=== PATIENT | female | born 1980 | race American Indian/Alaskan Native ===

== ENCOUNTER 2019-08-10 12:31 | Emergency (ER) | payer BC ==
[2019-08-10 13:06] VITALS: BP 122/69; PULSE 80
--- NOTE | 2019-08-10 13:08 | EDM.PDOC ---
ED HPI GENERAL MEDICAL PROBLEM - General Chief Complaint: Respiratory Problem Stated Complaint: COUGH Time Seen by Provider: 08/10/19 13:08 Source of Information: Reports: Patient History Limitations: Reports: No Limitations - History of Present Illness INITIAL COMMENTS - FREE TEXT/NARRATIVE: 39-year-old female presents to the ED with upper respiratory tract symptoms dating back about a week. She has a 7-year-old and to a twin 2-year-olds at home that are not ill. She states it started like a cold with nasal congestion and now moved into her chest with severe paroxysmal minimally productive cough. No hemoptysis. She appreciates wheezing particularly at nighttime when she is lying down. She has no history of asthma no history of seasonal allergies. Occasional low-grade fever with chills. 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 No definite known exposure. Seen in the clinic yesterday and started on a Z-Raheel. Chest x-ray was not done. Onset: Gradual Onset Date: 08/03/19 Duration: Week(s):, Getting Worse Location: Reports: Chest (Severe paroxysmal cough occasionally productive.) Quality: Reports: Other (Accessible minimally productive cough with wheezing) Severity: Moderate Improves with: Reports: None Worsens with: Reports: Other ( lying down and on walking.) Context: Denies: Activity, Exercise, Lifting, Sick Contact, Trauma, Other Associated Symptoms: Reports: Chest Pain, Cough, cough w sputum, Fever/Chills, Loss of Appetite, Malaise (Not sleeping well), Shortness of Breath ( as she is coughing a good portion of the night.). Denies: No Other Symptoms ( Particularly lower ribs from coughing), Confusion, Diaphoresis, Headaches ( Grade fever at times), Rash, Seizure ( Subjective shortness of breath on exertion), Syncope, Weakness Treatments [employer]: Reports: Other (see below) (None.) - Related Data Allergies Allergy/AdvReac Type Severity Reaction Status Date / Time amoxicillin [From Augmentin] Allergy Stomach Verified 08/10/19 13:03 Ache clavulanic acid Allergy Stomach Verified 08/10/19 13:03 [From Augmentin] Ache Home Meds: Home Meds Azithromycin 250 mg PO DAILY #6 tablet 08/10/19 [Rx] Hydrocodone/Chlorphen P-Stirex [Hydrocodone-Chlorphen ER Susp] 5 ml PO Q12H PRN #60 ml 08/10/19 [Rx] metFORMIN HCl [Metformin HCl ER] 500 mg PO DAILY 08/10/19 [History] Past Medical History - Past Health History Medical/Surgical History: Denies Medical/Surgical History Endocrine/Metabolic History: Reports: Diabetes, Type II (Prediabetes is an on metformin 500 mg once daily) Social & Family History - Living Situation & Occupation Living situation: Reports: Single Occupation: Employed ED ROS GENERAL - Review of Systems Review Of Systems: See Below Constitutional: Reports: Fever, Malaise, Weakness, Fatigue, Decreased Appetite. Denies: Chills HEENT: Reports: No Symptoms Respiratory: Reports: Shortness of Breath, Cough, Sputum. Denies: Wheezing, Pleuritic Chest Pain (Ejective shortness of breath), Hemoptysis Cardiovascular: Reports: Chest Pain (From coughing so much. Particularly lower ribs hurt.) Endocrine: Reports: Fatigue GI/Abdominal: Reports: Decreased Appetite. Denies: Constipation, Diarrhea, Nausea, Vomiting : Reports: No Symptoms Musculoskeletal: Reports: Other (Chest wall pain.) Skin: Reports: No Symptoms Neurological: Reports: No Symptoms Psychiatric: Reports: No Symptoms Hematologic/Lymphatic: Reports: No Symptoms Immunologic: Reports: No Symptoms ED EXAM, GENERAL - Physical Exam Exam: See Below Exam Limited By: No Limitations General Appearance: Alert, WD/WN, No Apparent Distress, Other (Temperature is 36.5. Heart rate is 80 respiratory to 16 O2 sats 99% room air BP 03/17/1968) Eye Exam: Bilateral Eye: Normal Inspection, PERRL Ears: Normal TMs Throat/Mouth: Normal Inspection, Normal Lips, Normal Oropharynx, Other (Normal tonsils.) Head: Atraumatic, Normocephalic Neck: Normal Inspection, Supple, Non-Tender, Full Range of Motion. No: Lymphadenopathy (L), Lymphadenopathy (R) Respiratory/Chest: No Respiratory Distress, Lungs Clear, Normal Breath Sounds, No Accessory Muscle Use, Chest Non-Tender, Other (Accessible productive sounding cough). No: Wheezing Cardiovascular: Normal Peripheral Pulses, Regular Rate, Rhythm, No Edema, No Gallop, No Murmur, No Rub Peripheral Pulses: 2+: Posterior Tibial (L), Posterior Tibial (R), Dorsalis Pedis (L), Dorsalis Pedis (R), 3+: Carotid (L), Carotid (R) GI/Abdominal: Normal Bowel Sounds, Soft, Non-Tender, No Organomegaly, No Abnormal Bruit, No Mass, Pelvis Stable, Other (Abdominal girth limits ability to palpate solid organs.) Back Exam: Normal Inspection, Full Range of Motion, Other (Is along the posterior lateral ribs particularly 8 9 and 10 on the left side). No: CVA Tenderness (L), CVA Tenderness (R) Extremities: Normal Inspection, Normal Range of Motion, Non-Tender, No Pedal Edema Neurological: Alert, Oriented, CN II-XII Intact, Normal Cognition Psychiatric: Normal Affect, Normal Mood Skin Exam: Warm, Dry, Intact, Normal Color, No Rash Course - Vital Signs Last Recorded V/S: Last Vital Signs Temp 36.5 C 08/10/19 13:03 Pulse 80 08/10/19 13:03 Resp 16 08/10/19 13:03 BP 122/69 08/10/19 13:03 Pulse Ox 99 08/10/19 13:03 - Orders/Labs/Meds Orders: Active Orders 24 hr Category Date Time Status RT Aerosol Therapy [RC] ASDIRECTED Care 08/10/19 13:44 Active Chest 1V Frontal [CR] Stat Exams 08/10/19 13:44 Taken Labs: Laboratory Tests 08/10/19 08/10/19 08/10/19 Range/Units 14:20 14:20 15:00 WBC 10.24 H (3.98-10.04) K/mm3 RBC 4.97 (3.98-5.22) M/mm3 Hgb 9.6 L (11.2-15.7) gm/dl Hct 33.0 L (34.1-44.9) % MCV 66.4 L (79.4-94.8) fl MCH 19.3 L (25.6-32.2) pg MCHC 29.1 L (32.2-35.5) g/dl RDW Std Deviation 43.7 (36.4-46.3) fL Plt Count 392 H (182-369) K/mm3 MPV 11.2 (9.4-12.3) fl Neut % (Auto) 68.8 (34.0-71.1) % Lymph % (Auto) 23.7 (19.3-51.7) % [place] % (Auto) 4.4 L (4.7-12.5) % Eos % (Auto) 2.7 (0.7-5.8) Baso % (Auto) 0.3 (0.1-1.2) % Neut # (Auto) 7.04 H (1.56-6.13) K/mm3 Lymph # (Auto) 2.43 (1.18-3.74) K/mm3 [place] # (Auto) 0.45 H (0.24-0.36) K/mm3 Eos # (Auto) 0.28 (0.04-0.36) K/mm3 Baso # (Auto) 0.03 (0.01-0.08) K/mm3 Manual Slide Review Abnormal smear C-Reactive Protein 2.5 H* (<1.0) mg/dL SARS Virus RNA (PCR) Negative (NEGATIVE) Meds: Medications Discontinued Medications Generic Name Dose Route Start Last Admin Trade Name Freq PRN Reason Stop Dose Admin Albuterol/Ipratropium 3 ml 08/10/19 13:44 08/10/19 14:09 Duoneb 3.0-0.5 Mg/3 Ml NEB 08/10/19 13:45 3 ml ONETIME ONE Administration - Radiology Interpretation Free Text/Narrative:: 39-year-old female presents to the ED for evaluation of severe paroxysmal cough that is keeping her awake good portion of the night. She states that upper respiratory tract symptoms started about a week ago with the nasal congestion. It subsequently moved into her chest for 5 days ago and now has paroxysmal productive sounding cough. She appreciates noisy respirations or wheezing at bedtime and night in the middle of the night. She has not had a look at any expectorated sputum to identify color. She was seen in the walk-in clinic yesterday and prescribed a Z-Raheel. She has no definite exposure to COVID-19. No one else in her family is ill. Lungs sound clear at this point time although she does have a paroxysmal productive sounding cough. Ear nose and throat exam is normal. Plan lab work to be done. DuoNeb will be done. COVID- 19 screen will be done although I think it is highly unlikely that she has COVID. Chest x-ray to be done. - Re-Assessments/Exams Free Text/Narrative Re-Assessment/Exam: 08/10/19 14:48 Hematology reveals a slightly elevated white count of 10.24. The differential is 69% neutrophils. This is on the auto differential. Hemoglobin is low at 9.6 with hematocrit of 33.0. MCV is very low at 66.4 suggesting iron deficiency. Mean corpuscular hemoglobin is also on the low side. Platelet count is normal at 392,000. C-reactive protein is elevated at 2.5 08/10/19 16:22 Covid 19 test is negative. We now taken to the x-ray suite for x-ray of her chest. 08/10/19 16:34 chest x-ray is negative for pneumonia. We will continue her Z- Raheel as previously prescribed. Will use Tussionex cough syrup 5 mils every 12 hours as needed for cough relief. Departure - Departure Time of Disposition: 16:39 Disposition: Home, Self-Care 01 Condition: Fair Clinical Impression: Acute bronchitis Qualifiers: Bronchitis organism: unspecified organism Qualified Code(s): J20.9 - Acute bronchitis, unspecified - Discharge Information *PRESCRIPTION DRUG MONITORING PROGRAM REVIEWED*: Not Applicable *COPY OF PRESCRIPTION DRUG MONITORING REPORT IN PATIENT SANIA: Not Applicable Prescriptions: Azithromycin 250 mg PO DAILY #6 tablet Hydrocodone/Chlorphen P-Stirex [Hydrocodone-Chlorphen ER Susp] 5 ml PO Q12H PRN #60 ml PRN Reason: cough relief Referrals: Eliana San PA [Primary Care Provider] - Forms: ED Department Discharge Additional Instructions: Evaluation in the ER today in regards to development of cold symptoms and then development of severe paroxysmal mildly productive cough. You were therefore worked up to make sure you did not have the [place] virus and it did necktie turner to be negative. Chest x-ray reveals no signs of pneumonia. Diagnosis is acute bronchitis. You are to continue your Zithromax to 50 mg once daily to complete a 10 day course. May use cough syrup Tussionex 5 mils every 12 hours as necessary for cough relief. Plan on taking getting a good hour before planning on going to bed as it takes about an hour to work. expect gradual improvement over the next 3 to 7 days. Sepsis Event Note (ED) - Evaluation Sepsis Screening Result: No Definite Risk - Focused Exam Vital Signs: Vital Signs Temp Pulse Resp BP Pulse Ox 08/10/19 13:03 36.5 C 80 16 122/69 99 - My Orders Last 24 Hours: My Active Orders 08/10/19 13:44 RT Aerosol Therapy [RC] ASDIRECTED Chest 1V Frontal [CR] Stat - Assessment/Plan Last 24 Hours: My Active Orders 08/10/19 13:44 RT Aerosol Therapy [RC] ASDIRECTED Chest 1V Frontal [CR] Stat
[2019-08-10] MEDS ORDERED: Albuterol/Ipratropium 3.0-0.5 MG/3 ML Neb Soln NEB ONE (13:44)
--- NOTE | 2019-08-11 07:18 | CR ---
Chest: Frontal view of the chest was obtained. Comparison: No previous study. Heart size and mediastinum are normal. Lungs are clear no acute parenchymal change. Bony structures are unremarkable. Impression: 1. Nothing acute is seen on frontal chest x-ray. Diagnostic code #1 Study was dictated in MDT
== END 2019-08-10 16:59 | disposition home or self-care (01) ==
LOC: JD.ED 12:31
DX: J20.9 Acute bronchitis, unspecified (principal); Z88.1 Allergy status to other antibiotic agents; Z88.8 Allergy status to other drugs, medicaments and biological substances; Z79.84 Long term (current) use of oral hypoglycemic drugs
CPT/HCPCS: 36415; 71045; 71045-26; 85025; 86140; 94640; 99283; 99284-25; J7620-GY; U0002